=== PATIENT | male | born 1930 | race Caucasian/White ===

== ENCOUNTER 2016-06-03 09:16 | Day surgery (SDC) | payer BC ==
--- NOTE | ~2016-06-03 | EGD ---
EGD REPORT [facility] [address] [address] NAME: MARU RANDALL : 34 STATUS : REG [facility]#: [id number] AGE: 86 ADM/REG DATE : 06/03/16 MR#: [id number] REPORT SERV DATE: 06/03/16 DICTATED BY: JUAN LEARY DATE: 06/03/16 REPORT STATUS : Draft [facility]ANSCRIBED BY: [facility] DATE: 06/03/16 Endoscopy Center Patient Name: Maru Randall Date of : 1930 Attending MD: JUAN LEARY MD Procedure Date No Time: 06/03/2016 Procedure: Upper GI endoscopy Indications: Dysphagia Medicines: Monitored Anesthesia Care Complications: No immediate complications. Procedure: Pre-Anesthesia Assessment: - ASA Grade Assessment: II - A patient with mild systemic disease. - ASA Grade Assessment: II - A patient with mild systemic disease. After obtaining informed consent, the endoscope was passed under direct vision. Throughout the procedure, the patient's blood pressure, pulse, and oxygen saturations were monitored continuously. The GIF H190 [id number] was introduced through the mouth, and advanced to the second part of duodenum. The upper GI endoscopy was accomplished without difficulty. The patient tolerated the procedure well. Findings: A moderate Schatzki ring (acquired) was found in the lower third of the esophagus. there appeared to be relative narrowing and acute angle in the upper esophagus just beneath the UES. A guidewire was placed and the scope was withdrawn. Dilation was performed with a Savary dilator with moderate resistance at 38 Fr. dilator felt tight as passing the UES. Estimated blood loss was minimal. LA Grade B (one or more mucosal breaks greater than 5 mm, not extending between the tops of two mucosal folds) esophagitis with no bleeding was found in the lower third of the esophagus. Biopsies were taken with a cold forceps for histology. A small hiatus hernia was present. Patchy mildly erythematous mucosa without bleeding was found in the gastric antrum. Biopsies were taken with a cold forceps for histology. Few non-bleeding superficial duodenal ulcers with no stigmata of bleeding were found in the second part of the duodenum. The largest lesion was 5 mm in largest dimension. Biopsies were taken with a cold forceps for histology. The cardia and gastric fundus were normal on retroflexion. Impression: - Moderate Schatzki ring. Dilated. EGD REPORT [address] [place]. [address] NAME: MARU RANDALL : [birth year] STATUS : REG [facility] [place] PAT#: [id number] AGE: 86 ADM/REG DATE : 06/03/16 MR#: [id number] REPORT SERV DATE: 06/03/16 DICTATED BY: JUAN LEARY DATE: 06/03/16 REPORT STATUS : Draft TRANSCRIBED BY: [facility] DATE: 06/03/16 - LA Grade B esophagitis. Biopsied. - Hiatus hernia. - Erythematous mucosa in the antrum. Biopsied. - Multiple duodenal ulcers with clean base. Biopsied. Recommendation: - Await pathology results. - Use Prilosec (omeprazole) 40 mg PO daily. - Repeat the upper endoscopy in 1-2 week for retreatment. Procedure Code(s): --- Professional --- 53679, Esophagogastroduodenoscopy, flexible, transoral; with insertion of guide wire followed by passage of dilator(s) through esophagus over guide wire 86310, Esophagogastroduodenoscopy, flexible, transoral; with biopsy, single or multiple Diagnosis Code(s): --- Professional --- K22.2, Esophageal obstruction K20.9, Esophagitis, unspecified K44.9, Diaphragmatic hernia without obstruction or gangrene K31.9, Disease of stomach and duodenum, unspecified K26.9, Duodenal ulcer, unspecified as acute or chronic, without hemorrhage or perforation R13.10, Dysphagia, unspecified CPT copyright 2013 [employer] [place] [employer]. All rights reserved. The codes documented in this report are preliminary and upon leaded glass installer review may be revised to meet current compliance requirements. JUAN LEARY MD 06/03/2016 1:20 PM This report has been signed electronically. Number of Addenda: 0 Note Initiated On: 06/03/2016 1:00 PM Scope Withdrawal Time 0 hours 0 minutes 0 seconds [address] [place] [id number]
[~2016-06-03 09:16] MED LIST: CINNAMON PLUS1 EACH; CINNAMON/CHROMIUM PO; CIP5 PO; COREG6; COREG6 PO; DSS PO; FLOMAX4 PO; METHOC750B PO; ONGLYZA5 MG; ONGLYZA5 MG PO; PCET PO; PRESERVISION A1 EAC1 PO; PRESERVISION A1 EACH; PRESERVISION VIT PO; PREVACID; PRIN5 PO; PROBIOTIC ALIGN PO; PROSCAR5 PO; PULMICORT180 MCG; PULMICORT180 MCG INH; SYMBICORT 160/41 INH INH; [UNRECOGNIZED DRUG - OTHER]; [UNRECOGNIZED DRUG - OTHER] PO
== END 2016-06-03 23:59 | disposition home or self-care (01) ==
LOC: DMU 09:16
PROVIDERS: Internal Medicine Gastroenterology
PROC: 0DB98ZX Excision of Duodenum, Via Natural or Artificial Opening Endoscopic, Diagnostic (ICD-10-PCS; 2016-06-03)
PROC: 0DB68ZX Excision of Stomach, Via Natural or Artificial Opening Endoscopic, Diagnostic (ICD-10-PCS; 2016-06-03)
PROC: 0D738ZZ Dilation of Lower Esophagus, Via Natural or Artificial Opening Endoscopic (ICD-10-PCS; principal; 2016-06-03 11:30)
PROC: 0DB38ZX Excision of Lower Esophagus, Via Natural or Artificial Opening Endoscopic, Diagnostic (ICD-10-PCS; 2016-06-03 11:30)
DX: K29.80 Duodenitis without bleeding (principal); K26.9 Duodenal ulcer, unspecified as acute or chronic, without hemorrhage or perforation; K29.50 Unspecified chronic gastritis without bleeding; K21.0 Gastro-esophageal reflux disease with esophagitis; K22.10 Ulcer of esophagus without bleeding; K22.2 Esophageal obstruction; K44.9 Diaphragmatic hernia without obstruction or gangrene; I10 Essential (primary) hypertension; I71.4 Abdominal aortic aneurysm, without rupture; N40.0 Benign prostatic hyperplasia without lower urinary tract symptoms; J45.909 Unspecified asthma, uncomplicated; M19.90 Unspecified osteoarthritis, unspecified site; H35.30 Unspecified macular degeneration; Z79.899 Other long term (current) drug therapy; Z87.891 Personal history of nicotine dependence; Z98.41 Cataract extraction status, right eye; Z98.42 Cataract extraction status, left eye; Z96.1 Presence of intraocular lens; Z86.010 Personal history of colon polyps; Z87.442 Personal history of urinary calculi; Z90.89 Acquired absence of other organs; Z98.890 Other specified postprocedural states
CPT/HCPCS: 82962; 88305

== ENCOUNTER 2016-06-08 11:22 | Day surgery (SDC) | payer BC ==
--- NOTE | ~2016-06-08 | EGD ---
EGD REPORT [facility] [address] [address] NAME: MARU RANDALL : 34 STATUS : REG [facility] [place] [place] PAT#: [id number] AGE: 86 ADM/REG DATE : 06/08/16 MR#: [id number] REPORT SERV DATE: 06/08/16 DICTATED BY: JUAN LEARY DATE: 06/08/16 REPORT STATUS : Draft [facility] DATE: 06/08/16 Endoscopy Center Patient Name: Maru Randall Date of : 1930 Attending MD: JUAN LEARY MD Procedure Date No Time: 06/08/2016 Procedure: Upper GI endoscopy Indications: Dysphagia Referring MD: THOMAS THOMPSON Medicines: Monitored Anesthesia Care Complications: No immediate complications. Procedure: Pre-Anesthesia Assessment: - ASA Grade Assessment: III - A patient with severe systemic disease. After obtaining informed consent, the endoscope was passed under direct vision. Throughout the procedure, the patient's blood pressure, pulse, and oxygen saturations were monitored continuously. The GIF H190 [id number] was introduced through the mouth, and advanced to the second part of duodenum. The upper GI endoscopy was accomplished without difficulty. The patient tolerated the procedure well. Findings: A mild Schatzki ring (acquired) was found in the lower third of the esophagus. A guidewire was placed and the scope was withdrawn. Dilation was performed with a Savary dilator with mild resistance at 42 Fr and mild resistance at 45 Fr. Estimated blood loss was minimal. The Z-line was irregular and was found at the gastroesophageal junction. Biopsies were taken with a cold forceps for histology. A small hiatus hernia was present. The duodenal bulb and 2nd part of the duodenum were normal. The cardia and gastric fundus were normal on retroflexion. Impression: - Mild Schatzki ring. Dilated. - Z-line irregular, at the gastroesophageal junction. Biopsied. - Hiatus hernia. - Normal duodenal bulb and 2nd part of the duodenum. Recommendation: - Await pathology results. - Patient has a contact number available for emergencies. The signs and symptoms of potential delayed complications were discussed with the patient. Return to normal activities tomorrow. Written discharge EGD REPORT [address] [address] NAME: MARU RANADLL : 34 STATUS : REG [facility] [place] [place] PAT#: [id number] AGE: 86 ADM/REG DATE : 06/08/16 MR#: [id number] REPORT SERV DATE: 06/08/16 DICTATED BY: JUNA LEARY DATE: 06/08/16 REPORT STATUS : Draft TRANSCRIBED BY: [employer] DATE: 06/08/16 instructions were provided to the patient. - Return to previous diet. - Continue present medications. - Follow an antireflux regimen. - Repeat the upper endoscopy PRN for retreatment. - liquids for 24 hours then soft diet for 24 hours then as tolerated. Procedure Code(s): --- Professional --- 70203, Esophagogastroduodenoscopy, flexible, transoral; with insertion of guide wire followed by passage of dilator(s) through esophagus over guide wire 52073, Esophagogastroduodenoscopy, flexible, transoral; with biopsy, single or multiple Diagnosis Code(s): --- Professional --- K22.2, Esophageal obstruction K22.8, Other specified diseases of esophagus K44.9, Diaphragmatic hernia without obstruction or gangrene R13.10, Dysphagia, unspecified CPT copyright 2013 [employer]. All rights reserved. The codes documented in this report are preliminary and upon medical reviewer review may be revised to meet current compliance requirements. JUAN LEARY MD 06/08/2016 2:11 PM This report has been signed electronically. Number of Addenda: 0 Note Initiated On: 06/08/2016 1:51 PM [address] [address]
== END 2016-06-08 23:59 | disposition home or self-care (01) ==
LOC: DMU 11:22
PROVIDERS: Internal Medicine Gastroenterology
PROC: 0D758ZZ Dilation of Esophagus, Via Natural or Artificial Opening Endoscopic (ICD-10-PCS; principal; 2016-06-08 13:30)
PROC: 0DB68ZX Excision of Stomach, Via Natural or Artificial Opening Endoscopic, Diagnostic (ICD-10-PCS; 2016-06-08 13:30)
DX: K29.70 Gastritis, unspecified, without bleeding (principal); I10 Essential (primary) hypertension; J45.909 Unspecified asthma, uncomplicated; E11.9 Type 2 diabetes mellitus without complications; K44.9 Diaphragmatic hernia without obstruction or gangrene; K22.2 Esophageal obstruction; M19.90 Unspecified osteoarthritis, unspecified site; K22.8 Other specified diseases of esophagus; Z90.89 Acquired absence of other organs; Z87.442 Personal history of urinary calculi; Z98.41 Cataract extraction status, right eye; Z98.42 Cataract extraction status, left eye
CPT/HCPCS: 82962; 88305